=== PATIENT | male | born 1980 | race Caucasian/White ===

== ENCOUNTER 2018-01-20 08:20 | Outpatient (REF) | payer BC, SELFPAY ==
[2018-01-20 17:45] LABS: Cholesterol 186 mg/dL (50-200); Glucose 97 mg/dL (70-100); HDL Cholesterol 29 mg/dL (40-60); LDL CHOLESTEROL 110 mg/dL (<100); Triglyceride 346 mg/dL (30-150)
== END 2018-01-20 08:40 ==
LOC: NCHCN 08:20
PROVIDERS: PCP Internal Medicine; Visit Provider Internal Medicine
DX: Z00.00 Encounter for general adult medical examination without abnormal findings (principal); Z13.1 Encounter for screening for diabetes mellitus; Z13.220 Encounter for screening for lipoid disorders
CPT/HCPCS: 80061; 82947; 83721

== ENCOUNTER 2020-12-21 08:24 | Outpatient (REF) | payer BC, SELFPAY ==
[2020-12-21 16:39] LABS: ALT 43 U/L (16-63); AST 33 U/L (15-37); Albumin 4.2 g/dL (3.4-5.0); Alkaline Phosphatase 58 U/L (46-116); BUN 19 mg/dL (7-18); Bilirubin, Total 0.5 mg/dL (0.2-1.0); CREATININE 0.9 mg/dL (0.70-1.30); Calculated LDL 108 mg/dL (<100); Chloride 103 mmol/L (98-107); Cholesterol 182 mg/dL (<200); Glucose 98 mg/dL (74-106); HDL Cholesterol 38 mg/dL (40-60); Potassium 4.2 mmol/L (3.5-5.1); Sodium 141 mmol/L (136-145); Total Protein 7.4 g/dL (6.4-8.2); Triglyceride 182 mg/dL (<150)
== END 2020-12-21 08:25 | disposition home or self-care (01) ==
LOC: NCHCN 08:24
PROVIDERS: PCP Internal Medicine; Visit Provider Internal Medicine
DX: Z00.00 Encounter for general adult medical examination without abnormal findings (principal)
CPT/HCPCS: 80053; 80061

== ENCOUNTER 2022-03-17 10:59 | Outpatient (REF) | payer BC, SELFPAY ==
[2022-03-17 15:59] LABS: ALT 86 U/L (16-63); AST 39 U/L (15-37); Albumin 3.8 g/dL (3.4-5.0); Alkaline Phosphatase 57 U/L (46-116); Anion Gap 6.6 mmol/L (3-11); BUN 12 mg/dL (7-18); Bilirubin, Total 0.4 mg/dL (0.2-1.0); CO2 29.4 mmol/L (21.0-32.0); CREATININE 0.9 mg/dL (0.70-1.30); Calcium 8.8 mg/dL (8.5-10.1); Calculated LDL 115 mg/dL (<100); Chloride 105 mmol/L (98-107); Cholesterol 174 mg/dL (<200); Estimated GFR 108.01 (mL/min/1.73m2); Glucose 115 mg/dL (74-106); HDL Cholesterol 37 mg/dL (40-60); Potassium 4.8 mmol/L (3.5-5.1); Sodium 141 mmol/L (136-145); Total Protein 7.4 g/dL (6.4-8.2); Triglyceride 111 mg/dL (<150)
[2022-03-18 10:05] LABS: HIV-1/2 Ag & Ab Screen Negative (Negative)
[2022-03-18 12:30] LABS: Hepatitis C Ab w Rflx HCV PCR Negative (Negative)
[2022-03-18 12:40] LABS: Estimated Average Glucose 120 mg/dL; Hemoglobin A1C 5.8 % (<5.7)
== END 2022-03-17 11:00 | disposition home or self-care (01) ==
LOC: NCHCN 10:59
PROVIDERS: PCP Internal Medicine; Visit Provider Nurse Practitioner Family
DX: E78.5 Hyperlipidemia, unspecified (principal); Z11.4 Encounter for screening for human immunodeficiency virus [HIV]; Z11.59 Encounter for screening for other viral diseases; Z00.00 Encounter for general adult medical examination without abnormal findings
CPT/HCPCS: 80053; 80061; 86803; 87389; 83036

== ENCOUNTER 2022-10-24 18:27 | Outpatient (REF) | payer BC, SELFPAY ==
[2022-10-24 16:12] LABS: ALT 49 U/L (16-63); AST 34 U/L (15-37); Albumin 3.9 g/dL (3.4-5.0); Alkaline Phosphatase 64 U/L (46-116); Bilirubin, Total 0.5 mg/dL (0.2-1.0); Calculated LDL 140 mg/dL (<100); Cholesterol 208 mg/dL (<200); Glucose 112 mg/dL (74-106); HDL Cholesterol 32 mg/dL (40-60); Total Protein 7.7 g/dL (6.4-8.2); Triglyceride 183 mg/dL (<150)
[2022-10-24 16:35] LABS: Hemoglobin A1C 5.7 % (<5.7)
[2022-10-24 16:52] LABS: Bilirubin, Direct 0.1 mg/dL (0.0-0.2)
== END 2022-10-24 18:28 | disposition home or self-care (01) ==
LOC: NCHCN 18:27
PROVIDERS: PCP Internal Medicine; Visit Provider Internal Medicine
DX: E78.5 Hyperlipidemia, unspecified (principal); R73.03 Prediabetes; R94.5 Abnormal results of liver function studies
CPT/HCPCS: 80061; 80076; 82947; 83036

== ENCOUNTER 2023-04-20 17:49 | Outpatient (REF) | payer BC, SELFPAY ==
[2023-04-21 18:05] LABS: HBs Antibody, Quant <3.1 mIU/mL (See Note); Hepatitis B Surface Ab Negative (See Note)
[2023-04-21 18:18] LABS: Hepatitis B Surface Ag Negative (Negative)
[2023-04-21 18:39] LABS: HIV-1/2 Ag & Ab Screen Negative (Negative); Hep B Core Antibody Negative (Negative)
[2023-04-21 18:47] LABS: Hepatitis C Ab w Rflx HCV PCR Negative (Negative)
[2023-04-22 11:20] LABS: Syphilis Serology (RPR) Negative (Negative)
[2023-04-22 12:34] LABS: Chlamydia Result Negative (Negative); GC Result Negative (Negative)
== END 2023-04-20 17:50 | disposition home or self-care (01) ==
LOC: NCHCN 17:49
PROVIDERS: PCP Internal Medicine; Visit Provider Registered Nurse
DX: Z11.3 Encounter for screening for infections with a predominantly sexual mode of transmission (principal); Z11.59 Encounter for screening for other viral diseases; Z11.4 Encounter for screening for human immunodeficiency virus [HIV]; Z01.84 Encounter for antibody response examination
CPT/HCPCS: 86704; 86706; 86803; 87340; 87389; 87491; 87591; 86592

== ENCOUNTER 2024-06-29 09:11 | Outpatient (REF) | payer BC, SELFPAY ==
[2024-06-29 14:25] LABS: Abs Immature Grans 0.01 10^3/uL (0.0-0.06); Absolute Basophil Count 0.04 10^3/uL (0.0-0.2); Absolute Eosinophil Count 0.28 10^3/uL (0.0-0.7); Absolute Monocyte Count 0.44 10^3/uL (0.1-0.8); Absolute Neutrophil Count 3.15 10^3/uL (1.2-6.7); Basophils % 0.7 %; Eosinophils % 4.7 %; HCT 48.2 % (40.0-50.0); HGB 16.3 g/dL (13.5-17.5); Immature Grans % 0.2 %; Lymphocytes % 34.9 %; MCH 31.3 pg (27.0-33.0); MCHC 33.8 % (32.0-36.0); MCV 93 fL (80-95); MPV 11.1 fL (8.0-11.0); Monocytes % 7.3 %; Neutrophils % 52.2 %; Platelet Count 302 10^3/uL (130-400); RBC 5.21 10^6/uL (4.36-5.78); RDW 12.6 % (11.8-14.1); WBC 6.02 10^3/uL (4.4-10.8)
[2024-06-29 14:48] LABS: Hemoglobin A1C 5.9 % (<5.7)
[2024-06-29 15:04] LABS: ALT 78 U/L (16-63); AST 48 U/L (15-37); Albumin 4.4 g/dL (3.4-5.0); Alkaline Phosphatase 60 U/L (46-116); Anion Gap 5.5 mmol/L (3-11); BUN 19 mg/dL (7-18); Bilirubin, Total 0.5 mg/dL (0.2-1.0); CO2 30.5 mmol/L (21.0-32.0); Calcium 9.5 mg/dL (8.5-10.1); Calculated LDL 134 mg/dL (<100); Chloride 105 mmol/L (98-107); Cholesterol 211 mg/dL (<200); Glucose 112 mg/dL (74-106); HDL Cholesterol 40 mg/dL (>or=40); Potassium 4.7 mmol/L (3.5-5.1); Sodium 141 mmol/L (136-145); Total Protein 8.1 g/dL (6.4-8.2); Triglyceride 186 mg/dL (<150)
== END 2024-06-29 09:12 | disposition home or self-care (01) ==
LOC: NCHCN 09:11
PROVIDERS: PCP Internal Medicine; Visit Provider Internal Medicine
DX: E78.5 Hyperlipidemia, unspecified (principal); R73.03 Prediabetes
CPT/HCPCS: 80053; 80061; 83036; 85025